=== PATIENT | female | born 1995 | race Caucasian/White ===

== ENCOUNTER 2019-01-11 01:21 | Emergency (ER) | payer OTHER ==
[~2019-01-11] VITALS: Ht 167.6 cm; Wt 59.0 kg
[2019-01-11 01:27] VITALS: BP 108/69
== END 2019-01-11 02:00 | disposition home or self-care (01) ==
LOC: ER 01:21
DX: S01.01XA Laceration without foreign body of scalp, initial encounter (principal); W22.01XA Walked into wall, initial encounter; Y93.89 Activity, other specified; Y92.89 Other specified places as the place of occurrence of the external cause
CPT/HCPCS: 99283